=== PATIENT | female | born 1995 | race Caucasian/White ===

== ENCOUNTER 2018-07-23 09:22 | Outpatient (CLI) | payer OTHER ==
--- NOTE | 2018-07-23 10:02 | Non Stress Test Report ---
Non Stress Test Datetime Report Generated by CPN: 07/23/2018 10:02 DEMOGRAPHIC EGA NST: 35.1 INDICATION Indication for Study: Diabetes Mellitus MONITORING Monitor Explained: Monitor Explained; Test Explained; Patient Verbalized Understanding Time on Monitor: 07/23/2018 09:29 Time off Monitor: 07/23/2018 09:53 NST Duration: 24 NST INTERVENTIONS NST Interventions: PO Hydration; Reposition Patient Physician Notified NST: Dr. Ernesto BABY A: [id number] BABY A Movement : Present Contraction Frequency : none FHR Baseline : 140 Accelerations : 15X15 Decelerations : None Variability : Moderate 6-25bpm NST Review: Meets Criteria for Reactive NST NST Review and Verified By : GIOVANNY Mock Results: Reactive NST REPORT Report Trigger: Send Report
== END 2018-07-23 09:55 | disposition home or self-care (01) ==
LOC: LC 09:22
PROVIDERS: ATTEND Obstetrics & Gynecology
PROC: 4A1HXCZ Monitoring of Products of Conception, Cardiac Rate, External Approach (ICD-10-PCS; principal; 2018-07-23)
DX: O24.419 Gestational diabetes mellitus in pregnancy, unspecified control (principal); Z3A.35 35 weeks gestation of pregnancy
CPT/HCPCS: 59025

== ENCOUNTER 2018-08-27 06:42 | Inpatient (IN) | payer OTHER ==
[2018-08-27] MEDS ORDERED: OXYTOCIN/NORMAL SALINE 20 UNIT/1,000 ML RTUINJ IV PRN ×2 (07:02→21:23)
[2018-08-27] MEDS ORDERED: RINGERS SOLUTION,LACTATED 300 ML IV ONE (07:02)
[2018-08-27] MEDS: RINGERS SOLUTION,LACTATED 1,000 ML IV PRN ×2 (07:32→15:32)
[2018-08-27] MEDS ORDERED: MISOPROSTOL 0.2 MG TABLET ONE (07:51)
[2018-08-27] MEDS ORDERED: LIDOCAINE 1% INJ-PF (10 MG/ML) 30 ML SDV ONE (07:51)
[2018-08-27] MEDS ORDERED: OXYTOCIN/NORMAL SALINE 20 UNIT/1,000 ML RTUINJ ONE (07:51)
[2018-08-27 07:56] LABS: APPEARANCE,URINE CLEAR; BILIRUBIN,URINE NEGATIVE (NEGATIVE); COLOR,URINE YELLOW; GLUCOSE, URINE NEGATIVE (NEGATIVE); KETONES,URINE NEGATIVE (NEGATIVE); LEUKOCYTE ESTERASE,URINE TRACE (NEGATIVE); NITRITE,URINE NEGATIVE (NEGATIVE); PROTEIN,URINE NEGATIVE (NEGATIVE); URINE SPECIFIC GRAVITY 1.017; UROBILINOGEN,URINE NEGATIVE mg/dL (<2.0)
[2018-08-27 08:11] LABS: ABSOLUTE EOSINOPHILS # (AUTO) 0.1 10^3/uL (0.0-0.6); ABSOLUTE LYMPHOCYTES (AUTO) 1.2 10^3/uL (0.5-4.7); ABSOLUTE MONOCYTES (AUTO) 0.6 10^3/uL (0.1-1.4); ABSOLUTE NEUT (AUTO) 5.9 10^3/uL (1.7-8.2); BASOPHILS % (AUTO) 0.4 % (0-2); EOSINOPHILS % (AUTO) 1.2 % (0-6); HEMATOCRIT 40.7 % (36.0-47.0); MEAN CORPUSCULAR HGB CONC 34.5 g/dL (32.0-36.0); MEAN CORPUSCULAR VOLUME 90 fl (80-97); MONOCYTES % (AUTO) 8.1 % (3-13); PLATELET COUNT 173 10^3/uL (150-450); RED BLOOD COUNT 4.53 10^6/uL (3.72-5.28); RED CELL DISTRIBUTION WIDTH 13.8 % (11.5-14.0); SEGMENTED NEUTROPHILS % (AUTO) 75.3 % (42-78); TOTAL CELLS COUNTED % (AUTO) 100 %; WHITE BLOOD COUNT 7.8 10^3/uL (4.0-10.5)
[2018-08-27 08:15] LABS: URINE AMPHETAMINES SCREEN NEGATIVE; URINE BARBITURATES SCREEN NEGATIVE; URINE BENZODIAZEPINES SCREEN NEGATIVE; URINE COCAINE SCREEN NEGATIVE; URINE MARIJUANA (THC) SCREEN NEGATIVE; URINE METHADONE SCREEN NEGATIVE; URINE PHENCYCLIDINE SCREEN NEGATIVE
[2018-08-27 08:32] LABS: BLOOD UREA NITROGEN 14 mg/dL (7-20); CALCIUM 9.3 mg/dL (8.4-10.2); CHLORIDE 109 mmol/L (98-107); GLUCOSE 89 mg/dL (75-110); POTASSIUM 3.9 mmol/L (3.6-5.0)
[2018-08-27 08:33] LABS: ALANINE AMINOTRANSFERASE 34 U/L (9-52); ALBUMIN 3.2 g/dL (3.5-5.0); ALKALINE PHOSPHATASE 155 U/L (38-126); ANION GAP 11 (5-19); ASPARTATE AMINO TRANSFERASE 31 U/L (14-36); BILIRUBIN,DIRECT 0.2 mg/dL (0.0-0.4); BILIRUBIN,TOTAL 0.9 mg/dL (0.2-1.3); CARBON DIOXIDE 20 mmol/L (22-30); TOTAL PROTEIN 6.2 g/dL (6.3-8.2)
--- NOTE | 2018-08-27 12:21 | Admission Physical ---
Datetime Report Generated by CPN: 08/27/2018 12:20 CURRENT ADMISSION Chief Complaint: Scheduled Induction of Labor Indication for Induction- Other: GDM at 40 weeks Admit Impression : Term, Intrauterine Admit Plan: Admit to Unit; Initiate Labor Induction Protocol ALLERGIES Medication Allergies: No Medication Allergies: No Known Allergies (08/27/2018) Latex: No Latex Allergies Food Allergies: none Environmental Allergies: seasonal OBSTETRICAL HISTORY EDC: 08/26/2018 00:00 : 1 Para: 0 Term: 0 : 0 SAB: 0 IAB: 0 Ectopic: 0 Livin Cesareans: 0 VBACs: 0 Multiple Births: 0 Gestational Diabetes: Yes Rh Sensitization: No Incompetent Cervix: No ALYSSA: No Infertility: No ART Treatment: No Uterine Anomaly: No IUGR: No Hx Previous C/S: No Macrosomia: No Hx Loss/Stillborn: No PIH: No Hx : No Placenta Previa/Abruption: No Depression/PP Depression: No PTL/PROM: No Post Hemorrhage: No Current Procedures: Ultrasound; NST Obstetrical History Comments: G1- current , GDM diet controlled SEE RECORDS Alcohol: No Marijuana : No Cocaine: No Other Illicit Drugs: No Cigarettes: Never Smoker. [id number] MEDICAL HISTORY Diabetes: Yes Diabetes Type: Gestational Diabetes Blood Transfusion: No Pulmonary Disease (Asthma, TB): Yes Breast Disease: No Hypertension: No Life Educator Surgery: No Heart Disease: No Hosp/Surgery: Yes Autoimmune Disorder: No Anesthetic Complications: No Kidney Disease: No Abnormal Pap Smear: No Neuro/Epilepsy: No Psychiatric Disorders: No Other Medical Diseases: No Hepatitis/Liver Disease: No Significant Family History: No Varicosities/Phlebitis: No Trauma/Violence : No Thyroid Dysfunction: No Medical History Comments: cholecystectomy 2009, exercised induced asthma as a child- no inhaler, wisdom teeth2011 INFECTIOUS HISTORY Gonorrhea: No Genital Herpes: No Chlamydia: No Tuberculosis: No Syphilis: No Hepatitis: No HIV/AIDS Exposure: No Rash or Viral Illness: No HPV: No PHYSICAL EXAM General: Normal HEENT: Normal Neurologic: Normal Thyroid: Deferred Heart: Normal Lungs: Normal Breast: Deferred Back: Normal Abdomen: Normal Genitourinary Exam: Normal Extremities: Normal DTRs: Deferred Pelvic Type: Not Done Physical Exam Comments: pelvic exam was done by RN VAGINAL EXAM Dilatation: 3 Effacement: 70 Station: -2 Contraction Comments: q3mins MEMBRANES Membranes: Intact FETUS A EGA: 40.1 Monitoring: External US FHR- Baseline: 125 Variability: Moderate 6-25bpm Accelerations: 15X15 Decelerations: None FHR Category: Category I Estimated Weight (gm): 3800 Presentation: Vertex Admit Comment: at 40+1, GDM diet controlled only-some noncompliance noted in clinic chart. GBS neg. Admitted for IOL. Pitocin started at 0845, now at 12mu/min. P: continue pitocin IOL, anticipate PLANS FOR LABOR AND DELIVERY Labor and Delivery: Plan Pain Management: None Feeding Preference: Breast Benefit of Breast Feed Discussed: Yes Circumcision: No INFORMED CONSENT Assignment: Tanja Orozco MD Signature: with User ID: [email or web address] : with User ID: [email or web address]
[2018-08-27] MEDS ORDERED: PROMETHAZINE HCL INJ 25 MG/1 ML VIAL ONE (16:07)
[2018-08-27] MEDS ORDERED: NALBUPHINE HCL INJ 10 MG/1 ML AMPULE ONE (16:07)
[2018-08-27] MEDS ORDERED: PROMETHAZINE HCL INJ 25 MG/1 ML VIAL IV ONE (16:16)
[2018-08-27] MEDS ORDERED: NALBUPHINE HCL INJ 10 MG/1 ML AMPULE INJ ONE (16:16)
[2018-08-27] MEDS ORDERED: EPHEDRINE SULFATE INJ 50 MG/1 ML AMPULE ONE (18:00)
[2018-08-27] MEDS ORDERED: FENTANYL/BUPIVACAINE/NS/PF 300 MCG/150 ML RTUINJ EPI ONE (18:01)
[2018-08-27] MEDS ORDERED: BUPIVACAINE HCL 0.5 % INJ/PF 30 ML SDV ONE (18:01)
[2018-08-27] MEDS ORDERED: BENZOCAINE/MENTHOL AEROSOL SPRAY 56 ML TOP PRN (21:23)
[2018-08-27] MEDS ORDERED: PROMETHAZINE HCL INJ 25 MG/1 ML VIAL IV PRN (21:23)
[2018-08-27] MEDS ORDERED: DIPH/PERTUSS(ACELL)/TETANUS VAC/PF 0.5 ML SYR (>=10YO) IM PRN (21:23)
[2018-08-27] MEDS ORDERED: PSEUDOEPHEDRINE HCL 30 MG TABLET PO PRN (21:23)
[2018-08-27] MEDS ORDERED: PROMETHAZINE HCL 25 MG SUPP.RECT PR PRN (21:23)
[2018-08-27] MEDS ORDERED: GLYCERIN/WITCH HAZEL LEAF 1 EACH MED..PAD TP PRN (21:23)
[2018-08-27] MEDS ORDERED: ZOLPIDEM TARTRATE 5 MG TABLET PO PRN (21:23)
[2018-08-27] MEDS ORDERED: ACETAMINOPHEN 650 MG SUPP.RECT PR PRN (21:23)
[2018-08-27] MEDS ORDERED: NA PHOS,M-B/NA PHOS,DI-BA (ADULT) 133 ML ENEMA PR PRN (21:23)
[2018-08-27] MEDS ORDERED: DIBUCAINE 1% OINTMENT 28 GM TP PRN (21:23)
[2018-08-27] MEDS ORDERED: DIPHENHYDRAMINE HCL 25 MG CAPSULE PO PRN (21:23)
[2018-08-27] MEDS ORDERED: ACETAMINOPHEN WITH CODEINE #3 TABLET PO PRN ×2 (21:23)
[2018-08-27] MEDS ORDERED: MAGNESIUM HYDROXIDE SUSP 30 ML UDCUP PO PRN (21:23)
[2018-08-27] MEDS ORDERED: MEASLES,MUMPS&RUBELLA VACC/PF 0.5 ML VIAL SUBCUT PRN (21:23)
[2018-08-27] MEDS ORDERED: PROMETHAZINE HCL 25 MG TABLET PO PRN (21:23)
--- NOTE | 2018-08-27 22:49 | Warning Signs in Babies ---
VOD Warning Signs Datetime Report Generated by [facility]: 08/27/2018 22:49 VOD#608 -Warning Signs in Babies: Needs to be viewed. (07/23/2018 09:23:Meghana Howell RN)
--- NOTE | 2018-08-28 00:21 | Delivery Summary ---
Del Sum A-C Datetime Report Generated by CPN: 08/28/2018 00:21 DELIVERY PERSONNEL DELIVERY PERSONNEL: [id number] Delivery Doctor:: Tnaja Orozco MD Labor and Delivery Nurse:: Meghana Howell RNsap business intelligence consultant Nurse:: Nhi Jernigan RN Infectious Diseases Physician/DRIVE THRU ORDER TAKER: Lizz Green, ST MATERNAL INFORMATION Delivery Anesthesia: Epidural Medications After Delivery: Pitocin Bolus-Please Comment Meds After Delivery Comment: Pitocin 20 units in 1 L NS bolusing per order Estimated Blood Loss (ml): 50 Maternal Complications: None LABOR SUMMARY EDC: 08/26/2018 00:00 No. Babies in Womb: 1 Attempted: No Labor Anesthesia: Epidural LABOR INFORMATION Reason for Induction: Maternal Diabetes Onset of Labor: 08/27/2018 16:20 Complete Dilatation: 08/27/2018 20:24 Oxytocin: Induction Group B Beta Strep: NEGATIVE Antibiotics # of Doses: 0 Steroids Given: None Reason Steroids Not Administered: Not Applicable MEMBRANES Membranes Rupture Method: Spontaneous Rupture of Membranes: 08/27/2018 17:30 Length of Rupture (hr): 3.63 Amniotic Fluid Color: Clear Amniotic Fluid Amount: Small Amniotic Fluid Odor: Normal STAGES OF LABOR Stage 1 hr: 4 Stage 1 min: 4 Stage 2 hr: 0 Stage 2 min: 44 Stage 3 hr: 0 Stage 3 min: 0 Total Time in Labor hr: 4 Total Time in Labor min: 48 VAGINAL DELIVERY Episiotomy: None Laceration #1: None Laceration Extension #1: N/A Laceration Repair: Not Applicable BABY A INFORMATION Infant Delivery Date/Time: 08/27/2018 21:08 Method of Delivery: Vaginal Born in Route : No : N/A Forceps: N/A Vacuum Extraction: N/A Shoulder Dystocia : No PRESENTATION/POSITION BABY A Presentation: Cephalic Cephalic Presentation: Vertex Vertex Position: Left Occipital Anterior Breech Presentation: N/A PLACENTA INFORMATION BABY A Placenta Delivery Time : 08/27/2018 21:08 Placenta Method of Delivery: Spontaneous Placenta Status: Delivered SCORES BABY A Heart Rate 1 min: >100 bpm Resp Effort 1 min: Slow, Irregular Reflex Irritability 1 min: Cough or Sneeze or Pulls Away Muscle Tone 1 min: Active Motion Color 1 min: Body [place], Extremities Blue SCORE 1 MIN: 8 Heart Rate 5 min: >100 bpm Resp Effort 5 min: Good Cry Reflex Irritability 5 min: Cough or Sneeze or Pulls Away Muscle Tone 5 min: Active Motion Color 5 min: Body [place], Extremities Blue SCORE 5 MIN: 9 INFANT INFORMATION BABY A Gestational Age at Delivery: 40.1 Gestational Status: Full Term- 39- 40.6 Weeks Infant Outcome : Liveborn Condition : Stable Sex: Male IDENTIFICATION BABY A Infant Verification Date/Time: 08/27/2018 21:37 ID Band Number: [id number] Mother's Name Verified: Yes Infant RN Verifying : Kg Additional Verifying Personnel: Sj Frederick RN WEIGHT/LENGTH BABY A Infant Birthweight (gm): 3640 Weight (lb): 8 Weight (oz): 0 Infant Length (in): 20.75 Length (cm): 52.71 CORD INFORMATION BABY A No. Cord Vessels: 3 Nuchal Cord : N/A Nuchal Cord- Other: x1 shoulder Cord Blood Taken: Yes-For Storage (Mom's Blood type +) Suction: None ASSESSMENT BABY A Skin to Skin: Yes BABY B INFORMATION : N/A SIGNATURES Signature: with User ID: Prema : I was personally available for consultation and serving as supervising physician for the MLP.
[2018-08-28] MEDS: IBUPROFEN 800 MG TABLET PO SCH ×4 (06:21→21:48)
[2018-08-28] MEDS: FAMOTIDINE 20 MG TABLET PO SCH ×3 (07:00→21:47)
[2018-08-28 08:11] LABS: HEMATOCRIT 38.2 % (36.0-47.0); MEAN CORPUSCULAR HEMOGLOBIN 30.9 pg (27.0-33.4); MEAN CORPUSCULAR HGB CONC 33.9 g/dL (32.0-36.0); MEAN CORPUSCULAR VOLUME 91 fl (80-97); PLATELET COUNT 169 10^3/uL (150-450); RED BLOOD COUNT 4.19 10^6/uL (3.72-5.28); RED CELL DISTRIBUTION WIDTH 13.7 % (11.5-14.0); WHITE BLOOD COUNT 12.4 10^3/uL (4.0-10.5)
[2018-08-28] MEDS ORDERED: SENNOSIDES/DOCUSATE 8.6-50 MG 1 EACH TABLET PO SCH (10:00)
[2018-08-28] MEDS ORDERED: (PENDING PHARMACY ID) (Prenatal No122/Iron/Folic Acid [Prenatal Multi Tablet] 1 TAB) PO SCH (10:00)
[2018-08-28] MEDS ORDERED: PRENATAL VITAMIN W DHA CAPSULE PO SCH (10:00)
[2018-08-28] MEDS: FERROUS SULFATE 325 MG TABLET PO SCH ×3 (10:25→18:22)
[2018-08-28] MEDS: DOCUSATE SODIUM 100 MG CAPSULE PO SCH ×2 (10:27→18:22)
--- NOTE | 2018-08-28 10:58 | PDOC PROGRESS REPORT ---
Subjective-OB Progress Note for:: 08/28/18 Subjective: 23yo G1 now P1 s/p pp1. Ambulating, and voiding without difficulty, denies concerns. Reports pain well controlled with meds Physical Exam (OB) Vital Signs: Temp Pulse Resp BP Pulse Ox 97.7 F 67 14 111/67 99 08/28/18 07:48 08/28/18 07:48 08/28/18 07:48 08/28/18 07:48 08/28/18 07:48 Intake & Output 08/27/18 08/28/18 08/29/18 06:59 06:59 06:59 Intake Total 1000 Balance 1000 Weight 86.4 kg - General General Appearance: Appears well In distress: None - PIH/Pre-Eclampsia Clonus: Negative Headache: Absent Epigastric Pain: No Visual Changes: No - Episiotomy/Laceration Site Condition: N/A - Lochia Lochia Amount: Scant < 10 ml Lochia Color: Rubra/Red - Abdomen Description: Soft, Round Fundal Description: Firm Fundal Height: u/u - u/2 - Respiratory Respiratory Status: No respiratory distress - Extremities Upper extremity: Normal inspection Lower extremities: Normal inspection - Neurological Cognition: Normal Orientation: AAOx4 - Psychological Associated symptoms: Normal affect, Normal mood Objective-Diagnostic Laboratory: 08/28/18 07:10 08/27/18 07:22 08/28/18 07:10 WBC 12.4 H RBC 4.19 Hgb 13.0 Hct 38.2 MCV 91 MCH 30.9 MCHC 33.9 RDW 13.7 Plt Count 169 Assessment and Plan(PN) - Assessment and Plan (1) Gestational diabetes mellitus (GDM) affecting first Is this a current diagnosis for this admission?: Yes Plan: delivered, will need pp glucose check (2) Delivery normal Is this a current diagnosis for this admission?: Yes Plan: routine pp care (3) Qualifiers: Weeks of gestation: 40 weeks Qualified Code(s): Z3A.40 - 40 weeks gestation of Is this a current diagnosis for this admission?: Yes Plan: delivered - Time Spent with Patient Time with patient: Less than 15 minutes Medications reviewed and adjusted accordingly: Yes - Disposition Anticipated Discharge: Home Within: within 24 hours
[2018-08-29] MEDS: IBUPROFEN 800 MG TABLET PO SCH (06:12)
[2018-08-29 09:08] VITALS: BP 120/76
[2018-08-29] MEDS: FAMOTIDINE 20 MG TABLET PO SCH (09:42)
--- NOTE | 2018-08-29 10:15 | PDOC DISCHARGE SUMMARY ---
Final Diagnosis Discharge Date: 08/29/18 - Final Diagnosis (1) Gestational diabetes mellitus (GDM) affecting first Is this a current diagnosis for this admission?: Yes (2) Delivery normal Is this a current diagnosis for this admission?: Yes (3) Is this a current diagnosis for this admission?: Yes Discharge Data - Discharge Medication Prescriptions: Ibuprofen [Motrin 800 mg Tablet] 800 mg PO Q8HP PRN #60 tablet PRN Reason: Abdominal Cramping Home Medications: No122/Iron/Folic Acid [ Multi Tablet] 1 tab PO DAILY 07/23/18 Ibuprofen [Motrin 800 mg Tablet] 800 mg PO Q8HP PRN #60 tablet 08/29/18 Reason(s) for Admission: Induction of Labor Procedures: NST, Ultrasound Intrapartum Procedure(s): Spontaneous Vaginal Delivery - Diagnosis Test Laboratory: Temp Pulse Resp BP Pulse Ox 98.3 F 73 18 121/79 97 08/28/18 19:30 08/28/18 19:30 08/28/18 19:30 08/28/18 19:30 08/28/18 19:30 08/27/18 08/27/18 08/28/18 06:54 07:22 07:10 RBC 4.53 4.19 Hgb 14.0 13.0 Hct 40.7 38.2 Urine Opiates Screen NEGATIVE - Discharge information/Instructions Discharge Activity: Activity As Tolerated, Balance Activity w/Rest, No Lifting Over 10 Pounds, Pelvic Rest, No tub bath, Walk Frequently Discharge Diet: As Tolerated, Regular Disposition: HOME, SELF-CARE Follow up with: [facility] in: 4, Weeks
== END 2018-08-29 13:23 | disposition home or self-care (01) | DRG 807 ==
LOC: LR 06:42 → 2S 08-28 00:10
PROVIDERS: ADMIT Obstetrics & Gynecology; ATTEND Obstetrics & Gynecology
PROC: 10E0XZZ Delivery of Products of Conception, External Approach (ICD-10-PCS; principal; 2018-08-27)
DX: O24.420 Gestational diabetes mellitus in childbirth, diet controlled (principal); Z37.0 Single live birth; O69.81X0 Labor and delivery complicated by cord around neck, without compression, not applicable or unspecified; O99.52 Diseases of the respiratory system complicating childbirth; J45.909 Unspecified asthma, uncomplicated; Z3A.40 40 weeks gestation of pregnancy
CPT/HCPCS: 36415; 80053; 80307; 81005; 85025; 85027; 86592; 86850; 86900; 86901; 94760; J2300; J2550; J2590; J3010; J3490